=== PATIENT | female | born 1975 | race Caucasian/White ===

== ENCOUNTER 2019-12-30 16:41 | Emergency (ER) | payer BC ==
[2019-12-30 17:06] LABS: ABSOLUTE BASOPHILS # (AUTO) 0.1 10^3/uL (0.0-0.2); ABSOLUTE EOSINOPHILS # (AUTO) 0.3 10^3/uL (0.0-0.6); ABSOLUTE LYMPHOCYTES (AUTO) 4.7 10^3/uL (0.5-4.7); ABSOLUTE MONOCYTES (AUTO) 0.6 10^3/uL (0.1-1.4); ABSOLUTE NEUT (AUTO) 3.5 10^3/uL (1.7-8.2); BASOPHILS % (AUTO) 0.6 % (0-2); HEMATOCRIT 45.6 % (36.0-47.0); HEMOGLOBIN 15.5 g/dL (12.0-15.5); LYMPHOCYTES % (AUTO) 51.4 % (13-45); MEAN CORPUSCULAR HGB CONC 34.1 g/dL (32.0-36.0); MEAN CORPUSCULAR VOLUME 85 fl (80-97); MONOCYTES % (AUTO) 6.4 % (3-13); PLATELET COUNT 283 10^3/uL (150-450); RED BLOOD COUNT 5.36 10^6/uL (3.72-5.28); RED CELL DISTRIBUTION WIDTH 14.4 % (11.5-14.0); SEGMENTED NEUTROPHILS % (AUTO) 38.6 % (42-78); TOTAL CELLS COUNTED % (AUTO) 100 %; WHITE BLOOD COUNT 9.1 10^3/uL (4.0-10.5)
[2019-12-30 17:13] LABS: APPEARANCE,URINE CLEAR; BILIRUBIN,URINE NEGATIVE (NEGATIVE); COLOR,URINE YELLOW; GLUCOSE, URINE NEGATIVE (NEGATIVE); KETONES,URINE NEGATIVE (NEGATIVE); LEUKOCYTE ESTERASE,URINE TRACE (NEGATIVE); NITRITE,URINE NEGATIVE (NEGATIVE); PROTEIN,URINE NEGATIVE (NEGATIVE); URINE SPECIFIC GRAVITY 1.004; UROBILINOGEN,URINE NEGATIVE mg/dL (<2.0)
[2019-12-30 17:14] LABS: ALBUMIN 4.7 g/dL (3.5-5.0); ALKALINE PHOSPHATASE 102 U/L (38-126); ANION GAP 10 (5-19); ASPARTATE AMINO TRANSFERASE 27 U/L (14-36); BILIRUBIN,TOTAL 0.4 mg/dL (0.2-1.3); BLOOD UREA NITROGEN 8 mg/dL (7-20); CALCIUM 9.6 mg/dL (8.4-10.2); CARBON DIOXIDE 29 mmol/L (22-30); CHLORIDE 99 mmol/L (98-107); CREATINE KINASE 92 U/L (30-135); GLUCOSE 145 mg/dL (75-110); POTASSIUM 4.6 mmol/L (3.6-5.0); TOTAL PROTEIN 8.2 g/dL (6.3-8.2)
[2019-12-30 17:26] LABS: CREATINE KINASE MB 1.96 ng/mL (<4.55)
[2019-12-30 17:34] LABS: TROPONIN I < 0.012 ng/mL
--- NOTE | 2019-12-30 17:50 | ER Document Report ---
ED Syncope and Near Syncope - General Chief Complaint: Near Syncope Stated Complaint: SYNCOPE Time Seen by Provider: 12/30/19 17:49 Notes: CHIEF COMPLAINT: Near syncope HPI: 44-year-old female presented by EMS for evaluation of a near syncopal episode while at a store today. Patient states she had a similar episode 2 weeks ago. States her face becomes flushed and she feels like she is going to become dizzy lightheaded and passed out. Patient did not pass out today. Patient states that 2 weeks ago she did go to the hospital in [place] and did wear a Holter monitor for 2 days but does not know the results. Has an appointment with Dr. Allen, cardiology on January 11. Patient had another episode while in a store today where she felt hot and flushed and felt like she was going to pass out. No chest pain or shortness of breath. No abdominal pain nausea vomiting. Patient states she feels normal now. ROS: See HPI - all other systems were reviewed and are otherwise negative Constitutional: no fever Eyes: no drainage, no blurred vision ENT: no runny nose, no sore throat Cardiovascular: no chest pain Resp: no SOB, no cough GI: no vomiting, no diarrhea, no abdominal pain : no dysuria Integumentary: no rash Allergy: no hives Musculoskeletal: no extremity pain or swelling Neurological: no numbness/tingling, no weakness, positive near syncope MEDICATIONS: I agree with the patient medications as charted by the RN. ALLERGIES: I agree with the allergies as charted by the RN. PAST MEDICAL HISTORY/PAST SURGICAL HISTORY: Reviewed and agree as charted by RN. SOCIAL HISTORY: Reviewed and agree as charted by RN. FAMILY HISTORY: No significant familial comorbid conditions directly related to patient complaint EXAM: Reviewed vital signs as charted by RN. CONSTITUTIONAL: Alert and oriented and responds appropriately to questions. Well-appearing; well-nourished HEAD: Normocephalic; atraumatic EYES: PERRL; Conjunctivae clear, sclerae non-icteric ENT: normal nose; no rhinorrhea; moist mucous membranes; pharynx without lesions noted, no uvula edema or deviation, no tonsillar hypertrophy, phonation normal NECK: Supple without meningismus; non-tender; no cervical lymphadenopathy, no masses CARD: RRR; no murmurs, no clicks, no rubs, no gallops; symmetric distal pulses RESP: Normal chest excursion without splinting or tachypnea; breath sounds clear and equal bilaterally; no wheezes, no rhonchi, no rales, pulse oximetry 99% on room air not hypoxic ABD/GI: Normal bowel sounds; non-distended; soft, non-tender, no rebound, no guarding; no palpable organomegaly or masses. BACK: The back appears normal and is non-tender to palpation, there is no CVA tenderness EXT: Normal ROM in all joints; non-tender to palpation; no cyanosis, no effusions, no edema SKIN: Normal color for age and race; warm; dry; good turgor; no acute lesions noted NEURO: Moves all extremities equally; Motor and sensory function intact PSYCH: The patient's mood and manner are appropriate. Grooming and personal hygiene are appropriate. MDM: 44-year-old female otherwise reasonably healthy presenting for near syncope today. Had a similar episode 2 weeks ago did wear a Holter for 2 days has appointment with cardiology in 10 days. Patient currently is in a normal sinus rhythm on the monitor. Her EKG is normal sinus rhythm. Initial screening labs sent via triage process. Will add magnesium, TSH. - Related Data Allergies/Adverse Reactions: No Known Allergies Allergy (Unverified 12/30/19 17:20) Past Medical History - Social History Smoking Status: Unknown if Ever Smoked Family History: Reviewed & Not Pertinent Patient has suicidal ideation: No Patient has homicidal ideation: No Physical Exam - Vital signs Vitals: Resp Pulse Ox 24 H 99 12/30/19 16:48 12/30/19 16:48 Course - Re-evaluation Re-evalutation: 12/30/19 18:59 I spoke with the patient at length. Her lab work does not show any acute abnormalities. EKG was normal sinus rhythm chest x-ray was normal. She is still in a normal sinus rhythm on the monitor. She is not having any symptoms. She perhaps had an arrhythmia, will likely need further follow-up with cardiology. She will likely need Holter monitor for a longer period than 2 days. She may need an outpatient EP study scheduled. Patient would like to go home at this time. She will call the certified adapted physical educator that she is supposed to see in [place] on Thursday to arrange close follow-up and will return for any recurrent symptoms - Vital Signs Vital signs: Temp Pulse Resp BP Pulse Ox 19 159/84 H 97 12/30/19 18:03 12/30/19 18:03 12/30/19 18:03 - Laboratory Result Diagrams: 12/30/19 16:20 12/30/19 16:20 Laboratory results interpreted by me: 12/30/19 12/30/19 12/30/19 16:20 16:20 16:20 RBC 5.36 H RDW 14.4 H Lymph % (Auto) 51.4 H Seg Neutrophils % 38.6 L Glucose 145 H Urine Blood MODERATE H Ur Leukocyte Esterase TRACE H Discharge - Discharge Clinical Impression: Near syncope Condition: Stable Disposition: HOME, SELF-CARE Instructions: Near Syncopal Episode ([facility]) Additional Instructions: Follow-up with cardiology in [place] on Thursday by phone to discuss closer evaluation given the recurrent episode. If you have any recurrent symptoms you may return to the emergency department for reevaluation. Your lab work, EKG and chest x-ray today were all without significant abnormalities. It is possible you will need to wear a Holter monitor for a longer period or have an electrophysiology study done by cardiology, discussed this with the cardiology office
--- NOTE | 2019-12-30 18:09 | EKG REPORT ---
SEVERITY:- NORMAL ECG - SINUS RHYTHM : Confirmed by: Tez Carrillo MD 30-Dec-2019 18:08:43
--- NOTE | 2019-12-30 18:17 | RADIOLOGY REPORT (SQ) ---
EXAM DESCRIPTION: CHEST 2 VIEWS IMAGES COMPLETED DATE/TIME: 12/30/2019 6:06 pm REASON FOR STUDY: syncope COMPARISON: None. EXAM PARAMETERS: NUMBER OF VIEWS: two views TECHNIQUE: Digital Frontal and Lateral radiographic views of the chest acquired. RADIATION DOSE: NA LIMITATIONS: none FINDINGS: LUNGS AND PLEURA: Mild prominence of the interstitial markings, may be on a chronic basis . No acute pulmonary consolidation. No pneumothorax or pleural effusion. MEDIASTINUM AND HILAR STRUCTURES: No masses or contour abnormalities. HEART AND VASCULAR STRUCTURES: Heart normal size. No evidence for failure. BONES: Dextroconvex scoliosis of the thoracic spine. HARDWARE: None in the chest. OTHER: No other significant finding. IMPRESSION: 1. Mild prominence of the interstitial markings common may be on a chronic basis. No a cute pulmonary consolidation. TECHNICAL DOCUMENTATION: JOB ID: [id number] 2010 [employer]- All Rights Reserved Reading location - IP/workstation name: [email or web address]
[2019-12-30 19:04] VITALS: BP 127/68
== END 2019-12-30 19:13 | disposition home or self-care (01) ==
LOC: ER 16:41
DX: R55 Syncope and collapse (principal)
CPT/HCPCS: 36415; 71046; 80053; 81001; 82550; 82553; 83735; 84443; 84484; 84703; 85025; 93005; 93010; 99284